=== PATIENT | female | born 1995 | race Caucasian/White ===

== ENCOUNTER 2019-03-12 07:20 | Inpatient (IN) | payer MEDICAID ==
[2019-03-12] MEDS: DEXTROSE 5%-LR 1,000 ML IV ×3 (10:46→20:36)
[2019-03-12] MEDS: LACTATED RINGER'S 1,000 ML IV (19:46)
[2019-03-12] MEDS: ACETAMINOPHEN 325 MG TAB PO (21:46)
[2019-03-13] MEDS: DEXTROSE 5%-LR 1,000 ML IV ×3 (01:22→17:01)
[2019-03-13 10:50] LABS: ADD MAN DIFF? NO
[2019-03-13 10:54] LABS: BASOPHILS % 0.3 % (0.0-2.0); EOSINOPHILS # 0.1 10^3/ul (0.0-0.5); EOSINOPHILS % 1.2 % (0.0-7.0); HEMATOCRIT 29.4 % (37.0-47.0); HEMOGLOBIN 9.5 g/dl (12.0-16.0); LYMPHOCYTES # 1.6 10^3/ul (0.8-2.9); LYMPHOCYTES % 14.1 % (15.0-51.0); MEAN CORPUSCULAR HEMOGLOBIN 29.5 pg (29.0-33.0); MEAN CORPUSCULAR HGB CONC 32.3 g/dl (32.0-37.0); MEAN CORPUSCULAR VOLUME 91.3 fl (82.0-101.0); MONOCYTE # 0.8 10^3/ul (0.3-0.9); MONOCYTES % 6.9 % (0.0-11.0); NEUTROPHIL # 8.4 10^3/ul (1.6-7.5); NEUTROPHILS % 76.8 % (39.0-77.0); PLATELET COUNT 287 10^3/UL (140-415); RED BLOOD COUNT 3.22 10^6/ul (4.20-5.40); RED CELL DISTRIBUTION WIDTH 13.5 % (11.5-14.5)
== END 2019-03-13 21:10 | disposition home or self-care (01) | DRG 833 ==
LOC: OBT 07:20 → L-D 07:20 → OBT 12:30 → L-D 12:30
PROVIDERS: Obstetrics & Gynecology
DX: O36.8130 Decreased fetal movements, third trimester, not applicable or unspecified (principal); Z3A.37 37 weeks gestation of pregnancy
CPT/HCPCS: 76818; 85025; 87210

== ENCOUNTER 2019-03-14 20:15 | Outpatient (CLI) | payer MEDICAID ==
[2019-03-14 22:16] LABS: ADD UMIC YES; UR ASCORBIC ACID NEGATIVE (NEGATIVE); UR BACTERIA FEW /HPF (NONE SEEN); UR BILIRUBIN (Dip) NEGATIVE (NEGATIVE); UR BLOOD (Dip) NEGATIVE (NEGATIVE); UR CLARITY CLEAR (CLEAR); UR COLOR STRAW (YELLOW); UR GLUCOSE (Dip) NEGATIVE (NEGATIVE); UR KETONES (Dip) NEGATIVE (NEGATIVE); UR LEUKOCYTE ESTERASE (Dip) 2+ Leu/ul (NEGATIVE); UR NITRITE (Dip) NEGATIVE (NEGATIVE); UR RBC 1 /HPF (0-5); UR SPECIFIC GRAVITY (Dip) 1.003 (1.003-1.030); UR TOTAL PROTEIN (Dip) NEGATIVE (NEGATIVE); UR UROBILINOGEN (Dip) NEGATIVE (NEGATIVE); UR WBC 7 /HPF (0-5)
[2019-03-14] MEDS: CEFTRIAXONE 1 GM/50 ML (PMX) 50 ML IVPB (23:18)
[2019-03-14] MEDS: SOD CHLORIDE 0.9% 1,000 ML IV (23:18)
== END 2019-03-15 00:30 | disposition home or self-care (01) ==
LOC: OBT 20:15 → L-D 20:15
DX: O23.43 Unspecified infection of urinary tract in pregnancy, third trimester (principal); O36.8330 Maternal care for abnormalities of the fetal heart rate or rhythm, third trimester, not applicable or unspecified; Z3A.37 37 weeks gestation of pregnancy
CPT/HCPCS: 36415; 76818; 81001; 87086; 96361; 96365